=== PATIENT | female | born 1955 | race Hispanic/Latino ===

== ENCOUNTER 2019-03-07 15:35 | Emergency (ER) | payer BC, MEDICARE, OTHER ==
[2019-03-07 15:54] VITALS: BMI 18.5
--- NOTE | 2019-03-07 16:02 | ED PDOC ---
Arrival/HPI - General Chief Complaint: Psychiatric Evaluation Time Seen by Provider: 03/07/19 15:38 Historian: Patient - History of Present Illness Narrative History of Present Illness (Text): 16:59 64 y/o female with PMH of depression, anxiety, PTSD presents to the ED c/o feeling hopeless and depressed x 1 week. Pt ran out of her medications today. 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 Denies the ingestion of medication as a suicide attempt, states she was just trying to calm down. Admits to recent intermittent suicidal ideations, but denies them currently. States her friend called the ambulance because she was concerned for her mental health. Denies any physical complaint. Denies fever, chills, chest pain, SOB, abdominal pain, back pain, nausea, vomiting, palpitations, dizziness, cough, or any other associated complaints. Past Medical History - Provider Review Nursing Documentation Reviewed: Yes - Hematological/Oncological Hx Blood Transfusions: No Hx Blood Transfusion Reaction: No - Anesthesia Hx Anesthesia Reactions: No Hx Malignant Hyperthermia: No Family/Social History - Physician Review Nursing Documentation Reviewed: Yes Family/Social History: No Known Family HX Allergies/Home Meds Allergies/Adverse Reactions: Allergies No Known Allergies Allergy (Verified 01/23/14 07:06) Home Medications: Home Meds Medication Instructions Recorded Confirmed Duloxetine HCl [Cymbalta] 60 mg PO DAILY 01/23/14 03/07/19 Review of Systems - Review of Systems Constitutional: Normal. absent: Fatigue Eyes: Normal. absent: Photophobia ENT: Normal. absent: Sore Throat, Sinus Congestion Respiratory: Normal. absent: SOB, Cough Cardiovascular: Normal. absent: Chest Pain, Palpitations, Syncope Gastrointestinal: Normal. absent: Abdominal Pain, Nausea, Vomiting Genitourinary Female: Normal. absent: Dysuria, Frequency Musculoskeletal: Normal. absent: Back Pain, Neck Pain Skin: Normal. absent: Rash Neurological: Normal. absent: Headache, Dizziness Psychiatric: Anxiety, Depression, Suicidal Ideation Physical Exam Vital Signs Reviewed: Yes Temperature: Afebrile Blood Pressure: Normal Pulse: Regular Respiratory Rate: Normal Appearance: Positive for: Non-Toxic, Unkept Pain Distress: None Mental Status: Positive for: Alert and Oriented X 3 - Systems Exam Head: Present: Atraumatic, Normocephalic Pupils: Present: PERRL Extroacular Muscles: Present: EOMI Conjunctiva: Present: Normal Mouth: Present: Moist Mucous Membranes Neck: Present: Normal Range of Motion Respiratory/Chest: Present: Clear to Auscultation, Good Air Exchange. No: Respiratory Distress, Accessory Muscle Use Cardiovascular: Present: Regular Rate and Rhythm, Normal S1, S2, Peripheal Pulses Present Abdomen: Present: Normal Bowel Sounds. No: Tenderness Back: Present: Normal Inspection Upper Extremity: Present: Normal Inspection, Normal ROM Lower Extremity: Present: Normal Inspection, Normal ROM Neurological: Present: GCS=15, Speech Normal, Motor Func Grossly Intact, Normal Sensory Function, Gait Normal Skin: Present: Warm, Dry, Normal Color. No: Rashes Psychiatric: Present: Alert, Oriented x 3, Anxious, Suicidal Ideation. No: Homicidal Ideation, Hallucinations Medical Decision Making ED Course and Treatment: Initial Plan: * Labs * UA, UDS * EKG * CXR * PES Eval * 1:1 16:54 Patient agitated, repeatedly asking if she may leave to have a cigarette. Pt offered nicotine patch, refused. Pt threatening to elope from ED, security notified. Pt also on continuous 1:1. Pending PES evaluation. PES called 5 times since 16:06pm per secretary receptionistKizzy. 17:05 PES ETA 17:30 17:31 Bloodwork reviewed, significant for low sodium and chloride. Pt is asymptomatic. Will treat with IVF. UA shows UTI. Patient refusing IV line and all medications. Tylenol level and ingestion of benzodiazepines discussed with ED attending Dr. Nic yun who recommends observation and re-draw at 4 hours from ingestion, approx 18:30. Unable to reach PES 18:08 PES states they are currently en route to hospital 19:10 Tylenol level has decreased from 27 to 11 on re-draw. Patient cleared for psychiatric discharge per Dr. Teresa, psychiatrist information systems security officer. However, patient is not medically cleared secondary to hyponatremia and need for observation secondary to excessive benzodiazepine ingestion. Pt will sign out AMA. Will treat for UTI outpatient. The patient is choosing to leave against medical advice. I have personally explained to the patient that choosing to do so may result in permanent bodily harm, disability, or . I have discussed at great length that without further evaluation and monitoring there may be unforeseen circumstances and/or deterioration causing permanent bodily harm or as a result of their choice. The patient is alert, oriented, and shows the mental capacity to make clear decisions regarding the patients health care at this time. The patient continues to wish to leave against medical advice. In light of the patients decision to leave against medical advice, follow-up has been arranged and the patient is aware of the importance to following up as instructed. The patient has been advised that they should return to the emergency room immediately if they change their mind at any time, or if their c ondition begins to change or worsen in any way. - Lab Interpretations Lab Results: 03/07/19 16:18 03/07/19 16:18 Lab Results 03/07/19 18:30: Acetaminophen 11.0 03/07/19 16:18: Alcohol, Quantitative < 10 03/07/19 16:18: Salicylates < 1 L, Acetaminophen 27.0 H 03/07/19 16:18: Urine Opiates Screen Negative, Urine Methadone Screen Negative, Ur Barbiturates Screen Negative, Ur Phencyclidine Scrn Negative, Ur Amphetamines Screen Negative, U Benzodiazepines Scrn Positive H, U Oth Cocaine Metabols Negative, U Cannabinoids Screen Negative 03/07/19 16:18: Sodium 127 L, Potassium 4.6, Chloride 95 L, Carbon Dioxide 25, Anion Gap 12, BUN 10, Creatinine 0.7, Est GFR ( Amer) > 60, Est GFR (Non- Af Amer) > 60, Random Glucose 95, Calcium 8.7, Total Bilirubin 0.7, AST 32, ALT 15, Alkaline Phosphatase 66, Total Protein 6.9, Albumin 4.3, Globulin 2.6, Albumin/Globulin Ratio 1.6 03/07/19 16:18: Urine Color yellow, Urine Appearance Clear, Urine pH 6.0, Ur Specific [place] 1.015, Urine Protein Negative, Urine Glucose (UA) Negative, Urine Ketones Negative, Urine Blood Small H, Urine Nitrate Positive H, Urine Bilirubin Negative, Urine Urobilinogen 0.2, Ur Leukocyte Esterase Trace H, Urine RBC 5 - 10 H, Urine WBC 2 - 5, Ur Epithelial Cells 3 - 4, Urine Bacteria Mod, Urine HCG, Qual Negative 03/07/19 16:18: WBC 6.1, RBC 3.99, Hgb 12.3, Hct 36.8, MCV 92.2, MCH 30.8, MCHC 33.4, RDW 12.8, Plt Count 354, MPV 9.3, Neut % (Auto) 55.7, Lymph % (Auto) 32.8, Towns % (Auto) 10.2 H, Eos % (Auto) 0.8 L, Baso % (Auto) 0.5, Lymph # (Auto) 2.0, Towns # (Auto) 0.6, Eos # (Auto) 0.1, Baso # (Auto) 0.03, Absolute Neuts (auto) 3.38 I have reviewed the lab results: Yes - RAD Interpretation Narrative RAD Interpretations (Text): 03/07/19 18:51 CXR: FINDINGS: LUNGS: No active pulmonary disease. PLEURA: No significant pleural effusion identified, no pneumothorax apparent. CARDIOVASCULAR: Aortic atherosclerotic calcifications. Cardiomediastinal silhouette within normal limits. OSSEOUS STRUCTURES: Spinal degenerative changes. VISUALIZED UPPER ABDOMEN: Normal. OTHER FINDINGS: None. IMPRESSION: No active disease. Journeyman Electrician: Radiologist Disposition/Present on Arrival - Present on Arrival Any Indicators Present on Arrival: No History of DVT/PE: No History of Uncontrolled Diabetes: No Urinary Catheter: No History of Decub. Ulcer: No - Disposition Have Diagnosis and Disposition been Completed?: No Diagnosis: UTI (urinary tract infection), Depression, Hyponatremia, Left against medical advice Disposition: AGAINST MEDICAL ADVICE Disposition Time: 19:25 Patient Plan: Discharge Patient Problems: Current Active Problems Problem Status Onset Depression Acute Hyponatremia Acute Condition: GUARDED Discharge Instructions (ExitCare): Urinary Tract Infections in Adults, Hyponatremia (DC) Additional Instructions: Keflex every 12 hours for 7 days Increase salt in diet Refrain from excessive tylenol use Followup with primary doctor tomorrow Followup with psychiatrist tomorrow Return to ER with any new/worsening symptoms or if you wish to be re-evaluated Forms: [employer] (Yi)
[2019-03-07 16:45] LABS: BASO # 0.03 K/mm3 (0.0-2.0); BASO % 0.5 % (0.0-3.0); EOS # 0.1 (0.0-0.7); EOS % 0.8 % (1.5-5.0); HEMOGLOBIN 12.3 g/dL (12.0-16.0); LYMPH % 32.8 % (22.0-35.0); MEAN CELL VOLUME 92.2 fl (80.0-105.0); MEAN CORPUSCULAR HEMOGLOBIN 30.8 pg (25.0-35.0); MEAN CORPUSCULAR HGB CONC 33.4 g/dl (31.0-37.0); MEAN PLATELET VOLUME 9.3 fl (7.0-11.0); MONO # 0.6 (0.1-0.6); MONO % 10.2 % (1.0-6.0); RBC 3.99 10^6/uL (3.5-6.1); RED CELL DISTRIBUTION WIDTH 12.8 % (11.5-14.5); URINE BILIRUBIN NEGATIVE (NEGATIVE); URINE BLOOD SMALL (NEGATIVE); URINE GLUCOSE (UA) NEGATIVE (NEGATIVE); URINE LEUKOCYTE ESTERASE TRACE Leu/uL (NEGATIVE); URINE PROTEIN NEGATIVE mg/dL (<30 mg/dL); URINE UROBILINOGEN 0.2 E.U./dL (<1 E.U./dL); WHITE BLOOD COUNT 6.1 10^3/uL (4.5-11.0)
[2019-03-07 16:54] VITALS: RESP 18; TEMP 98.6
[2019-03-07 17:01] LABS: ALB/GLOB RATIO 1.6 (1.1-1.8); ALBUMIN 4.3 g/dL (3.0-4.8); ALT/SGPT 15 U/L (7-56); AST/SGOT 32 U/L (14-36); BLOOD UREA NITROGEN 10 mg/dL (7-21); CALCIUM 8.7 mg/dL (8.4-10.5); GFR NON-AFRICAN AMERICAN > 60
[2019-03-07 17:02] LABS: SALICYLATE < 1 mg/dL (2.0-20.0)
[2019-03-07 17:06] LABS: URINE APPEARANCE CLEAR (CLEAR)
[2019-03-07 17:07] LABS: HCG,QUALITATIVE URINE NEGATIVE (NEGATIVE)
[2019-03-07 17:09] LABS: URINE BACTERIA MOD /hpf
[2019-03-07 17:14] LABS: BARBITURATES, UR NEGATIVE (NEGATIVE); BENZODIAZEPINES, UR POSITIVE (NEGATIVE); OPIATES, UR NEGATIVE (NEGATIVE); PHENCYCLIDINE, UR NEGATIVE (NEGATIVE)
--- NOTE | 2019-03-07 17:36 | RAD ---
Date of service: 03/07/2019 HISTORY: PES COMPARISON: None available TECHNIQUE: 1 view obtained. FINDINGS: LUNGS: No active pulmonary disease. PLEURA: No significant pleural effusion identified, no pneumothorax apparent. CARDIOVASCULAR: Aortic atherosclerotic calcifications. Cardiomediastinal silhouette within normal limits. OSSEOUS STRUCTURES: Spinal degenerative changes. VISUALIZED UPPER ABDOMEN: Normal. OTHER FINDINGS: None. IMPRESSION: No active disease.
[2019-03-07 18:31] VITALS: BP 129/79; PULSE 79; O2SAT 98
--- NOTE | 2019-03-08 11:00 | CARD ---
APPROVED REPORT Date of service: 03/07/2019 EKG Measurement Heart [id number] <Conclusion> Normal sinus rhythm Normal ECG
== END 2019-03-07 19:33 | disposition left against medical advice (07) ==
LOC: ED 15:35
DX: F32.9 Major depressive disorder, single episode, unspecified (principal); N39.0 Urinary tract infection, site not specified; E87.1 Hypo-osmolality and hyponatremia; F43.10 Post-traumatic stress disorder, unspecified; F41.9 Anxiety disorder, unspecified
CPT/HCPCS: 71045; 80053; 81001; 84703; 85025; 87086; 87181; 90791; 93005; 99285; G0480

== ENCOUNTER 2019-03-09 19:43 | Observation (INO) | payer OTHER ==
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
[2019-03-09 20:36] LABS: HEMOGLOBIN 12.5 g/dL (12.0-16.0); MEAN CELL VOLUME 92.5 fl (80.0-105.0); MEAN CORPUSCULAR HEMOGLOBIN 31.3 pg (25.0-35.0); MEAN CORPUSCULAR HGB CONC 33.8 g/dl (31.0-37.0); MEAN PLATELET VOLUME 8.9 fl (7.0-11.0); WHITE BLOOD COUNT 6.8 10^3/uL (4.5-11.0)
[2019-03-09 20:56] LABS: ALB/GLOB RATIO 1.6 (1.1-1.8); ALBUMIN 4.1 g/dL (3.0-4.8); ALT/SGPT 10 U/L (7-56); AST/SGOT 30 U/L (14-36); BLOOD UREA NITROGEN 9 mg/dL (7-21); GFR NON-AFRICAN AMERICAN > 60
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
[2019-03-09] MEDS ORDERED: Sodium Chloride 0.9% 1,000 ML IV SCH (22:00)
[2019-03-10 00:03] LABS: PHENCYCLIDINE, UR NEGATIVE (NEGATIVE)
[2019-03-10] MEDS ORDERED: DEXTROSE 5% IVPB ONE ×3 (00:12→05:12)
[2019-03-10] MEDS ORDERED: ACETYLCYSTEINE IVPB ONE ×3 (00:12→05:12)
[2019-03-10] MEDS ORDERED: WATER IVPB ONE ×3 (00:12→05:12)
[2019-03-10 00:23] LABS: BARBITURATES, UR NEGATIVE (NEGATIVE); BENZODIAZEPINES, UR POSITIVE (NEGATIVE); OPIATES, UR NEGATIVE (NEGATIVE)
[2019-03-10 02:33] VITALS: BMI 18.1
[2019-03-10 06:47] LABS: HEMOGLOBIN 12.6 g/dL (12.0-16.0); MEAN CELL VOLUME 92.4 fl (80.0-105.0); MEAN CORPUSCULAR HEMOGLOBIN 30.9 pg (25.0-35.0); MEAN CORPUSCULAR HGB CONC 33.4 g/dl (31.0-37.0); MEAN PLATELET VOLUME 9.1 fl (7.0-11.0); RBC 4.08 10^6/uL (3.5-6.1)
[2019-03-10 07:25] LABS: ALB/GLOB RATIO 1.6 (1.1-1.8); ALT/SGPT 15 U/L (7-56); AST/SGOT 24 U/L (14-36); BLOOD UREA NITROGEN 7 mg/dL (7-21); CALCIUM 8.5 mg/dL (8.4-10.5); GFR NON-AFRICAN AMERICAN > 60
--- NOTE | 2019-03-10 11:24 | CARD ---
APPROVED REPORT Date of service: 03/09/2019 EKG Measurement Heart [id number] <Conclusion> Normal sinus rhythm Normal ECG
[2019-03-10 22:33] VITALS: RESP 18
[2019-03-10 23:29] LABS: ALB/GLOB RATIO 1.6 (1.1-1.8); ALBUMIN 3.8 g/dL (3.0-4.8); ALT/SGPT 13 U/L (7-56); AST/SGOT 18 U/L (14-36); BLOOD UREA NITROGEN 5 mg/dL (7-21); CALCIUM 8.8 mg/dL (8.4-10.5); GFR NON-AFRICAN AMERICAN > 60
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
[2019-03-11 07:19] LABS: ALB/GLOB RATIO 1.5 (1.1-1.8); ALBUMIN 3.8 g/dL (3.0-4.8); ALT/SGPT 17 U/L (7-56); AST/SGOT 22 U/L (14-36); BLOOD UREA NITROGEN 4 mg/dL (7-21); CALCIUM 8.8 mg/dL (8.4-10.5); GFR NON-AFRICAN AMERICAN > 60
[2019-03-11 07:57] VITALS: BP 132/73; PULSE 77; TEMP 97.8; O2SAT 96
--- NOTE | 2019-03-11 12:11 | CP.PCM.DIS ---
<Hugo Jackson - Last Filed: 03/11/19 15:27> Provider - Provider Date of Admission: 03/09/19 21:49 Attending physician: Philippe Vogel MD Consults: 03/09/19 22:09 Physician Consult Routine Comment: Consulting Provider: Surekha Mathur Consulting Physician: Surekha Mathur Reason for Consult: depression and suicidal ideation Time Spent in preparation of Discharge (in minutes): 35 Hospital Course - Lab Results Lab Results: Most Recent Lab Values WBC 5.0 10^3/uL (4.5-11.0) D 03/10/19 06:30 RBC 4.08 10^6/uL (3.5-6.1) 03/10/19 06:30 Hgb 12.6 g/dL (12.0-16.0) 03/10/19 06:30 Hct 37.7 % (36.0-48.0) 03/10/19 06:30 MCV 92.4 fl (80.0-105.0) 03/10/19 06:30 MCH 30.9 pg (25.0-35.0) 03/10/19 06:30 MCHC 33.4 g/dl (31.0-37.0) 03/10/19 06:30 RDW 13.0 % (11.5-14.5) 03/10/19 06:30 Plt Count 340 10^3/uL (120.0-450.0) 03/10/19 06:30 MPV 9.1 fl (7.0-11.0) 03/10/19 06:30 Sodium 132 mmol/L (132-148) 03/11/19 06:20 Potassium 3.9 mmol/L (3.6-5.0) 03/11/19 06:20 Chloride 101 mmol/L (98-107) 03/11/19 06:20 Carbon Dioxide 26 mmol/L (21-33) 03/11/19 06:20 Anion Gap 9 (10-20) L 03/11/19 06:20 BUN 4 mg/dL (7-21) L 03/11/19 06:20 Creatinine 0.4 mg/dl (0.7-1.2) L 03/11/19 06:20 Est GFR ( Amer) > 60 03/11/19 06:20 Est GFR (Non-Af Amer) > 60 03/11/19 06:20 Random Glucose 93 mg/dL (70-110) 03/11/19 06:20 Serum Osmolality 262 mosm/kg (272-300) L 03/10/19 06:30 Calcium 8.8 mg/dL (8.4-10.5) 03/11/19 06:20 Total Bilirubin 0.5 mg/dL (0.2-1.3) 03/11/19 06:20 AST 22 U/L (14-36) 03/11/19 06:20 ALT 17 U/L (7-56) 03/11/19 06:20 Alkaline Phosphatase 58 U/L (38-126) 03/11/19 06:20 Total Protein 6.2 g/dL (5.8-8.3) 03/11/19 06:20 Albumin 3.8 g/dL (3.0-4.8) 03/11/19 06:20 Globulin 2.4 gm/dL 03/11/19 06:20 Albumin/Globulin Ratio 1.5 (1.1-1.8) 03/11/19 06:20 TSH 3rd Generation 3.25 mIU/mL (0.46-4.68) 03/10/19 06:30 Urine Osmolality 346 mosm/kg (300-1000) 03/09/19 23:23 Ur Random Sodium 23 meq/L 03/09/19 23:23 Salicylates < 1 mg/dL (2.0-20.0) L 03/09/19 20:30 Urine Opiates Screen Negative (NEGATIVE) 03/09/19 23:23 Urine Methadone Screen Negative (NEGATIVE) 03/09/19 23:23 Acetaminophen < 10.0 ug/ml (10.0-20.0) L 03/10/19 21:50 Ur Barbiturates Screen Negative (NEGATIVE) 03/09/19 23:23 Ur Phencyclidine Scrn Negative (NEGATIVE) 03/09/19 23:23 Ur Amphetamines Screen Negative (NEGATIVE) 03/09/19 23:23 U Benzodiazepines Scrn Positive (NEGATIVE) H 03/09/19 23:23 U Oth Cocaine Metabols Negative (NEGATIVE) 03/09/19 23:23 U Cannabinoids Screen Negative (NEGATIVE) 03/09/19 23:23 Alcohol, Quantitative < 10 mg/dL (0-10) 03/09/19 20:30 - Hospital Course Hospital Course: 64 year old female, whose past medical history includes Depression, Anxiety, PTS H, Claustrophobia who presented to the ED with depression. USD positive for tylenol level of 64 and positive benzodiazepine level. LFT level normal. Poison Control contacted and recommended to adminster NAC therapy. 1:1 observation initiated. Patient stated that she ingestion tylenol to calm her down as she ran out of xanax supply which she misuses trying to calm herself down from anxiety and depression. Patient denied suicidal/homicidal ideation. She only felt alone and depressed but she does not want to end her life. Patient was evaluated by psychiatry with no need for inpatient psych admission. Tylenol level came down, no LFT abnormalities, no EKG changes. Patient found to have hyponatremia on admission likely due to her home med cymbalta and excess water ingestion. Patient was asymptomatic. IVF NS given with water restriction orders and Na level corrected. Today patient felt less anxious, no suicidal thoughts, hemodynamically stable and clinically optimized for discharge home today. Additional discharge instructions as below. Discharge Exam - Head Exam Head Exam: ATRAUMATIC, NORMAL INSPECTION, NORMOCEPHALIC - Eye Exam Eye Exam: EOMI, Normal appearance Pupil Exam: NORMAL ACCOMODATION, PERRL - ENT Exam ENT Exam: Mucous Membranes Moist - Neck Exam Neck exam: Full Rom - Respiratory Exam Respiratory Exam: Clear to PA & Lateral, NORMAL BREATHING PATTERN - Cardiovascular Exam Cardiovascular Exam: REGULAR RHYTHM, +S1, +S2 - GI/Abdominal Exam GI & Abdominal Exam: Normal Bowel Sounds, Soft - Extremities Exam Extremities exam: full ROM, normal inspection - Back Exam Back exam: FULL ROM - Neurological Exam Neurological exam: Alert, CN II-XII Intact, Normal Gait, Oriented x3, Reflexes Normal - Psychiatric Exam Psychiatric exam: Normal Affect, Normal Mood - Skin Skin Exam: Dry, Intact, Normal Color, Warm Discharge Plan - Discharge Medications Prescriptions: Alprazolam [Xanax] 0.5 mg PO TID PRN #21 tab PRN Reason: Anxiety - Follow Up Plan Condition: STABLE Disposition: HOME/ ROUTINE Instructions: Acetaminophen Poisoning (DC), Hyponatremia (DC), Depression (DC) Additional Instructions: Please follow up with your PCP Dr Merino within 2-3 days of discharge Please take Xanax 0.5 mg as needed for anxiety. Prescription of 5 days given. Repeat urinalysis at your doctor's office as it was positive for bacteria but since you don't have symptoms, no antibiotics required. Check you Tylenol level in 1 week with your primary care provider. continue to take your home meds as prescribed by your doctor. Please return to the emergency department if symptoms recur. Referrals: Hai Herron MD [Staff Provider] - Marcin Heart MD [Non-Staff] - Coy Merino DO [Medical Doctor] - <Philippe Vogel - Last Filed: 03/11/19 18:01> Provider - Provider Date of Admission: 03/09/19 21:49 Attending physician: Philippe Vogel MD Consults: 03/09/19 22:09 Physician Consult Routine Comment: Consulting Provider: Surekha Mathur Consulting Physician: Surekha Mathur Reason for Consult: depression and suicidal ideation Hospital Course - Lab Results Lab Results: Most Recent Lab Values WBC 5.0 10^3/uL (4.5-11.0) D 03/10/19 06:30 RBC 4.08 10^6/uL (3.5-6.1) 03/10/19 06:30 Hgb 12.6 g/dL (12.0-16.0) 03/10/19 06:30 Hct 37.7 % (36.0-48.0) 03/10/19 06:30 MCV 92.4 fl (80.0-105.0) 03/10/19 06:30 MCH 30.9 pg (25.0-35.0) 03/10/19 06:30 MCHC 33.4 g/dl (31.0-37.0) 03/10/19 06:30 RDW 13.0 % (11.5-14.5) 03/10/19 06:30 Plt Count 340 10^3/uL (120.0-450.0) 03/10/19 06:30 MPV 9.1 fl (7.0-11.0) 03/10/19 06:30 Sodium 132 mmol/L (132-148) 03/11/19 06:20 Potassium 3.9 mmol/L (3.6-5.0) 03/11/19 06:20 Chloride 101 mmol/L (98-107) 03/11/19 06:20 Carbon Dioxide 26 mmol/L (21-33) 03/11/19 06:20 Anion Gap 9 (10-20) L 03/11/19 06:20 BUN 4 mg/dL (7-21) L 03/11/19 06:20 Creatinine 0.4 mg/dl (0.7-1.2) L 03/11/19 06:20 Est GFR ( Amer) > 60 03/11/19 06:20 Est GFR (Non-Af Amer) > 60 03/11/19 06:20 Random Glucose 93 mg/dL (70-110) 03/11/19 06:20 Serum Osmolality 262 mosm/kg (272-300) L 03/10/19 06:30 Calcium 8.8 mg/dL (8.4-10.5) 03/11/19 06:20 Total Bilirubin 0.5 mg/dL (0.2-1.3) 03/11/19 06:20 AST 22 U/L (14-36) 03/11/19 06:20 ALT 17 U/L (7-56) 03/11/19 06:20 Alkaline Phosphatase 58 U/L (38-126) 03/11/19 06:20 Total Protein 6.2 g/dL (5.8-8.3) 03/11/19 06:20 Albumin 3.8 g/dL (3.0-4.8) 03/11/19 06:20 Globulin 2.4 gm/dL 03/11/19 06:20 Albumin/Globulin Ratio 1.5 (1.1-1.8) 03/11/19 06:20 TSH 3rd Generation 3.25 mIU/mL (0.46-4.68) 03/10/19 06:30 Urine Osmolality 346 mosm/kg (300-1000) 03/09/19 23:23 Ur Random Sodium 23 meq/L 03/09/19 23:23 Salicylates < 1 mg/dL (2.0-20.0) L 03/09/19 20:30 Urine Opiates Screen Negative (NEGATIVE) 03/09/19 23:23 Urine Methadone Screen Negative (NEGATIVE) 03/09/19 23:23 Acetaminophen < 10.0 ug/ml (10.0-20.0) L 03/10/19 21:50 Ur Barbiturates Screen Negative (NEGATIVE) 03/09/19 23:23 Ur Phencyclidine Scrn Negative (NEGATIVE) 03/09/19 23:23 Ur Amphetamines Screen Negative (NEGATIVE) 03/09/19 23:23 U Benzodiazepines Scrn Positive (NEGATIVE) H 03/09/19 23:23 U Oth Cocaine Metabols Negative (NEGATIVE) 03/09/19 23:23 U Cannabinoids Screen Negative (NEGATIVE) 03/09/19 23:23 Alcohol, Quantitative < 10 mg/dL (0-10) 03/09/19 20:30 Attending/Attestation - Attestation I have personally seen and examined this patient.: Yes I have fully participated in the care of the patient.: Yes I have reviewed all pertinent clinical information, including history, physical exam and plan: Yes Notes (Text): 03/11/19 17:58 Attending note; Patient seen and examined with resident. Patient is alert and awake. Ambulating in the hallway. Tolerating diet well. Denies any nausea, vomiting. Patient is a 64 year old female with past medical history of Depression, Anxiety, PTSD, Claustrophobia who presented to the ED with depression. USD positive for tylenol level of 64 and positive benzodiazepine level. 1. Tylenol toxicity; patient was taking Tylenol PM for insomnia. Initial Tylenol level was 64. Treated with N-acetylcysteine. Currently with negative Tylenol level and normal LFT. Poison control was informed. Patient is tolerating diet well. Denies any nausea, vomiting. Advised to avoid Tylenol. Side effects explained in detail. 2. Xanax overuse or abuse; patient was seen by psychiatrist. We will give prescription for low-dose Xanax for 1 week. Patient wants to follow-up with Dr. Hendricks as outpatient. Patient is strongly advised to follow-up with psychiatrist as outpatient. Patient agreed with the above recommendations. Discharge home today.
--- NOTE | 2019-03-11 15:13 | CP.PCM.PCO ---
Physician Communication Note - Physician Communication Note Physician Communication Note: pt was discharged
== END 2019-03-11 14:00 | disposition home or self-care (01) ==
LOC: ED 19:43 → ERH 21:49 → 5RNO 22:50
PROVIDERS: ADMIT Internal Medicine; ATTEND Internal Medicine
DX: T39.1X2A Poisoning by 4-Aminophenol derivatives, intentional self-harm, initial encounter (principal); E87.1 Hypo-osmolality and hyponatremia; F32.9 Major depressive disorder, single episode, unspecified; R45.851 Suicidal ideations; F43.10 Post-traumatic stress disorder, unspecified; G47.00 Insomnia, unspecified; F17.210 Nicotine dependence, cigarettes, uncomplicated; F40.240 Claustrophobia; Z62.810 Personal history of physical and sexual abuse in childhood
CPT/HCPCS: 36415; 80053; 80320; 80324; 80329; 80345; 80346; 80349; 80353; 80358; 80361; 83930; 83935; 83992; 84300; 84443; 85027; 90791; 93005; 99284; G0378; J0132; J7030; J7060; J7070

== ENCOUNTER 2019-03-13 08:06 | Inpatient (IN) | payer MEDICARE, OTHER ==
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
[2019-03-13 09:14] LABS: BASO # 0.03 K/mm3 (0.0-2.0); BASO % 0.7 % (0.0-3.0); EOS # 0.1 (0.0-0.7); EOS % 2.4 % (1.5-5.0); HEMOGLOBIN 12.1 g/dL (12.0-16.0); LYMPH # 1.8 (1.2-3.4); LYMPH % 38.4 % (22.0-35.0); MEAN CELL VOLUME 92.4 fl (80.0-105.0); MEAN CORPUSCULAR HEMOGLOBIN 30.8 pg (25.0-35.0); MEAN CORPUSCULAR HGB CONC 33.3 g/dl (31.0-37.0); MEAN PLATELET VOLUME 9.1 fl (7.0-11.0); MONO # 0.4 (0.1-0.6); MONO % 8.3 % (1.0-6.0); RBC 3.93 10^6/uL (3.5-6.1); RED CELL DISTRIBUTION WIDTH 13.1 % (11.5-14.5); WHITE BLOOD COUNT 4.6 10^3/uL (4.5-11.0)
--- NOTE | 2019-03-13 09:27 | RAD ---
Date of service: 03/13/2019 HISTORY: psych COMPARISON: Chest radiograph dated 03/07/2019. TECHNIQUE: 1 view obtained. FINDINGS: LUNGS: No active pulmonary disease. PLEURA: No significant pleural effusion identified, no pneumothorax apparent. CARDIOVASCULAR: Aortic atherosclerotic calcifications. Cardiomediastinal silhouette within normal limits. OSSEOUS STRUCTURES: Unchanged. VISUALIZED UPPER ABDOMEN: Normal. OTHER FINDINGS: None. IMPRESSION: No active disease.
[2019-03-13 09:32] LABS: SALICYLATE < 1 mg/dL (2.0-20.0)
[2019-03-13 09:39] LABS: ALB/GLOB RATIO 1.6 (1.1-1.8); ALBUMIN 3.9 g/dL (3.0-4.8); ALT/SGPT 8 U/L (7-56); AST/SGOT 22 U/L (14-36); BLOOD UREA NITROGEN 7 mg/dL (7-21); CALCIUM 8.8 mg/dL (8.4-10.5); GFR NON-AFRICAN AMERICAN > 60
[2019-03-13 10:01] LABS: URINE BILIRUBIN NEGATIVE (NEGATIVE); URINE BLOOD SMALL (NEGATIVE); URINE GLUCOSE (UA) NEGATIVE (NEGATIVE); URINE LEUKOCYTE ESTERASE SMALL Leu/uL (NEGATIVE); URINE PROTEIN NEGATIVE mg/dL (<30 mg/dL); URINE UROBILINOGEN 0.2 E.U./dL (<1 E.U./dL)
[2019-03-13] MEDS ORDERED: DEXTROSE 5% IVPB ONE ×3 (10:01→15:15)
[2019-03-13] MEDS ORDERED: ACETYLCYSTEINE IVPB ONE ×3 (10:01→15:15)
[2019-03-13] MEDS ORDERED: WATER IVPB ONE ×3 (10:01→15:15)
[2019-03-13 10:12] LABS: PHENCYCLIDINE, UR NEGATIVE (NEGATIVE)
[2019-03-13] MEDS ORDERED: Sodium Chloride 0.9% 1,000 ML IV SCH (10:15)
[2019-03-13 10:17] LABS: BARBITURATES, UR NEGATIVE (NEGATIVE); BENZODIAZEPINES, UR POSITIVE (NEGATIVE); OPIATES, UR NEGATIVE (NEGATIVE); URINE APPEARANCE SL CLOUDY (CLEAR); URINE BACTERIA LARGE /hpf; URINE COLOR YELLOW (YELLOW); URINE EPITHELIAL CELLS 0 - 2 /hpf (0-5); URINE RBC 0 - 2 /hpf (0-2)
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
[2019-03-13 11:52] VITALS: BMI 18.5
[2019-03-13] MEDS ORDERED: DiphenhydrAMINE 50 mg/ml Inj IVP ONE (17:17)
--- NOTE | 2019-03-13 19:19 | CARD ---
APPROVED REPORT Date of service: 03/13/2019 EKG Measurement Heart [id number] <Conclusion> Normal sinus rhythm Normal ECG
[2019-03-13] MEDS ORDERED: DiphenhydrAMINE 50 mg/ml Inj IVP STA (20:41)
[2019-03-13 22:53] LABS: ALB/GLOB RATIO 1.5 (1.1-1.8); ALBUMIN 3.8 g/dL (3.0-4.8); ALT/SGPT 19 U/L (7-56); AST/SGOT 15 U/L (14-36); BLOOD UREA NITROGEN 4 mg/dL (7-21); CALCIUM 8.8 mg/dL (8.4-10.5); GFR NON-AFRICAN AMERICAN > 60
[2019-03-14 06:14] LABS: BASO # 0.03 K/mm3 (0.0-2.0); BASO % 0.6 % (0.0-3.0); EOS # 0.1 (0.0-0.7); LYMPH # 1.6 (1.2-3.4); LYMPH % 33.1 % (22.0-35.0); MEAN CELL VOLUME 92.6 fl (80.0-105.0); MEAN CORPUSCULAR HEMOGLOBIN 30.5 pg (25.0-35.0); MEAN PLATELET VOLUME 8.9 fl (7.0-11.0); MONO # 0.6 (0.1-0.6); MONO % 12.4 % (1.0-6.0); RBC 3.93 10^6/uL (3.5-6.1); WHITE BLOOD COUNT 4.8 10^3/uL (4.5-11.0)
[2019-03-14 06:41] LABS: INR 1.17; PROTHROMBIN TIME 13.2 SECONDS (9.4-12.5)
[2019-03-14 07:14] LABS: ALB/GLOB RATIO 1.4 (1.1-1.8); ALBUMIN 3.6 g/dL (3.0-4.8); ALT/SGPT 13 U/L (7-56); AST/SGOT 20 U/L (14-36); BILIRUBIN,DIRECT 0.3 mg/dL (0.0-0.4); BLOOD UREA NITROGEN 3 mg/dL (7-21); CALCIUM 8.6 mg/dL (8.4-10.5); GFR NON-AFRICAN AMERICAN > 60
--- NOTE | 2019-03-14 08:27 | CP.PCM.PN ---
<SumeetBhupendra - Last Filed: 03/14/19 12:02> Subjective - Date & Time of Evaluation Date of Evaluation: 03/14/19 Time of Evaluation: 08:00 - Subjective Subjective: Progress Note for Dr. Espinoza Service Patient was seen and examined at bedside with 1:1 sitter for patient safety maintained. Patient is AAOx3 and would like to speak to psychiatry. She is still having difficulty sleeping, and expressed major depression with suicidal id eation. Patient denied fever, chills, shortness of breath chest pains, abdominal pains, nausea, vomiting, diarrhea, constipation, hematura. Objective - Vital Signs/Intake and Output Vital Signs (last 24 hours): Temp Pulse Resp BP Pulse Ox 97.6 F 63 20 132/65 99 03/13/19 16:40 03/14/19 06:00 03/13/19 16:40 03/13/19 16:40 03/13/19 16:40 - Medications Medications: Current Medications Alprazolam (Xanax) 1 mg PO TID PRN; Protocol PRN Reason: Anxiety Last Admin: 03/13/19 14:23 Dose: 1 mg Ciprofloxacin (Cipro) 250 mg PO Q12 DESI; Protocol Stop: 03/15/19 22:01 Last Admin: 03/13/19 21:32 Dose: 250 mg Nicotine (Nicoderm Cq) 1 patch TD DAILY DESI Last Admin: 03/13/19 13:54 Dose: 1 patch - Labs Labs: 03/14/19 05:30 03/14/19 05:30 PT 13.2 SECONDS (9.4-12.5) H 03/14/19 05:30 INR 1.17 03/14/19 05:30 - Constitutional Appears: No Acute Distress - Head Exam Head Exam: ATRAUMATIC, NORMAL INSPECTION, NORMOCEPHALIC - Eye Exam Eye Exam: EOMI, Normal appearance, PERRL Pupil Exam: NORMAL ACCOMODATION, PERRL - ENT Exam ENT Exam: Mucous Membranes Moist, Normal Exam - Neck Exam Neck Exam: Full ROM, Normal Inspection. absent: Lymphadenopathy - Respiratory Exam Respiratory Exam: Clear to Ausculation Bilateral, NORMAL BREATHING PATTERN - Cardiovascular Exam Cardiovascular Exam: REGULAR RHYTHM, +S1, +S2. absent: Murmur - GI/Abdominal Exam GI & Abdominal Exam: Soft, Normal Bowel Sounds. absent: Tenderness - Neurological Exam Neurological Exam: Alert, Awake, CN II-XII Intact, Normal Gait, Oriented x3 - Psychiatric Exam Psychiatric exam: Normal Affect, Normal Mood - Skin Skin Exam: Dry, Intact, Normal Color, Warm Assessment and Plan - Assessment and Plan (Free Text) Assessment: 64 F with a PMHx of PTSD, Bipolar disorder, anxiety and depression admitted with suicidal ideation with tylenol OD. Suicidal Ideation 1:1 sitter maintained for patient safety Psychiatry consulted, appreciate recommendations Tylenol overdose Poison Control notified, comppleted NAC therapy LFTS wnl Repeat levels <10 Anxiety Xanax 1mg TID PRN Psych reccs pending utox benzo + Hyponatremia fluid restriction 1L Na wnl on repeat CMP UTI Cipro 250 mg PO q12h day 2 of 3 Tobacco abuse nicotine patch offered tobacco cessation encouraged and counselled DVT ppx scd <Gabriel Espinoza - Last Filed: 03/14/19 13:29> Objective - Vital Signs/Intake and Output Vital Signs (last 24 hours): Temp Pulse Resp BP Pulse Ox 97.8 F 72 18 126/77 98 03/14/19 08:35 03/14/19 10:00 03/14/19 08:35 03/14/19 08:35 03/14/19 08:35 - Medications Medications: Current Medications Alprazolam (Xanax) 1 mg PO TID PRN; Protocol PRN Reason: Anxiety Last Admin: 03/14/19 10:17 Dose: 1 mg Ciprofloxacin (Cipro) 250 mg PO Q12 DESI; Protocol Stop: 03/15/19 22:01 Last Admin: 03/14/19 10:17 Dose: 250 mg Nicotine (Nicoderm Cq) 1 patch TD DAILY DESI Last Admin: 03/14/19 10:18 Dose: Not Given - Labs Labs: 03/14/19 05:30 03/14/19 05:30 PT 13.2 SECONDS (9.4-12.5) H 03/14/19 05:30 INR 1.17 03/14/19 05:30 Attending/Attestation - Attestation I have personally seen and examined this patient.: Yes I have fully participated in the care of the patient.: Yes I have reviewed all pertinent clinical information, including history, physical exam and plan: Yes Notes (Text): 03/14/19 13:27 64 year old female with past medical history of anxiety and depression who presents with complaint of anxiety and depression with SI with overdose of tylenol. Initial tylenol level was 28. UTox positive for benzodiazepines. Poison control was notified and patient started on NAC protocol. LFTs are WNL and tylenol level has trended down. This morning patient still reports depression and anxiety. Continue with 1:1. Continue with xanax prn. Awaiting psychiatry evaluation for likely inpatient psychiatric admission. Hyponatremia has resolved. Resume cymbalta if okay with psychiatry. Continue with cipro for E Coli UTI. Gabriel Espinoza MD Hospitalist.
[2019-03-14 08:36] VITALS: BP 126/77; RESP 18; TEMP 97.8; O2SAT 98
[2019-03-14 13:06] VITALS: PULSE 72
--- NOTE | 2019-03-14 15:00 | CP.PCM.DIS ---
<Bhupendra Fay - Last Filed: 03/14/19 14:57> Provider - Provider Date of Admission: 03/13/19 10:09 Attending physician: Gabriel Espinoza MD Primary care physician: Coy Merino DO Consults: 03/14/19 10:12 Physician Consult Routine Comment: Consulting Provider: Surekha Mathur Consulting Physician: Surekha Mathur Reason for Consult: SI Time Spent in preparation of Discharge (in minutes): 45 Hospital Course - Lab Results Lab Results: Micro Results 03/13/19 09:43 Urine,Clean Catch Urine Culture - Preliminary Gram Negative Glen Most Recent Lab Values WBC 4.8 10^3/uL (4.5-11.0) 03/14/19 05:30 RBC 3.93 10^6/uL (3.5-6.1) 03/14/19 05:30 Hgb 12.0 g/dL (12.0-16.0) 03/14/19 05:30 Hct 36.4 % (36.0-48.0) 03/14/19 05:30 MCV 92.6 fl (80.0-105.0) 03/14/19 05:30 MCH 30.5 pg (25.0-35.0) 03/14/19 05:30 MCHC 33.0 g/dl (31.0-37.0) 03/14/19 05:30 RDW 13.0 % (11.5-14.5) 03/14/19 05:30 Plt Count 298 10^3/uL (120.0-450.0) 03/14/19 05:30 MPV 8.9 fl (7.0-11.0) 03/14/19 05:30 Neut % (Auto) 52.9 % (50.0-68.0) 03/14/19 05:30 Lymph % (Auto) 33.1 % (22.0-35.0) 03/14/19 05:30 Swain % (Auto) 12.4 % (1.0-6.0) H 03/14/19 05:30 Eos % (Auto) 1.0 % (1.5-5.0) L 03/14/19 05:30 Baso % (Auto) 0.6 % (0.0-3.0) 03/14/19 05:30 Lymph # (Auto) 1.6 (1.2-3.4) 03/14/19 05:30 Swain # (Auto) 0.6 (0.1-0.6) 03/14/19 05:30 Eos # (Auto) 0.1 (0.0-0.7) 03/14/19 05:30 Baso # (Auto) 0.03 K/mm3 (0.0-2.0) 03/14/19 05:30 Absolute Neuts (auto) 2.52 (1.4-6.5) 03/14/19 05:30 PT 13.2 SECONDS (9.4-12.5) H 03/14/19 05:30 INR 1.17 03/14/19 05:30 Sodium 136 mmol/L (132-148) 03/14/19 05:30 Potassium 4.2 mmol/L (3.6-5.0) 03/14/19 05:30 Chloride 106 mmol/L (98-107) 03/14/19 05:30 Carbon Dioxide 25 mmol/L (21-33) 03/14/19 05:30 Anion Gap 9 (10-20) L 03/14/19 05:30 BUN 3 mg/dL (7-21) L 03/14/19 05:30 Creatinine 0.4 mg/dl (0.7-1.2) L 03/14/19 05:30 Est GFR ( Amer) > 60 03/14/19 05:30 Est GFR (Non-Af Amer) > 60 03/14/19 05:30 Random Glucose 93 mg/dL (70-110) 03/14/19 05:30 Calcium 8.6 mg/dL (8.4-10.5) 03/14/19 05:30 Magnesium 1.9 mg/dL (1.7-2.2) 03/14/19 05:30 Total Bilirubin 0.5 mg/dL (0.2-1.3) 03/14/19 05:30 Direct Bilirubin 0.3 mg/dL (0.0-0.4) 03/14/19 05:30 AST 20 U/L (14-36) 03/14/19 05:30 ALT 13 U/L (7-56) 03/14/19 05:30 Alkaline Phosphatase 51 U/L (38-126) 03/14/19 05:30 Total Creatine Kinase 35 U/L (35-230) 03/13/19 08:34 Total Protein 6.1 g/dL (5.8-8.3) 03/14/19 05:30 Albumin 3.6 g/dL (3.0-4.8) 03/14/19 05:30 Globulin 2.5 gm/dL 03/14/19 05:30 Albumin/Globulin Ratio 1.4 (1.1-1.8) 03/14/19 05:30 Urine Color Yellow (YELLOW) 03/13/19 09:40 Urine Appearance Sl cloudy (CLEAR) 03/13/19 09:40 Urine pH 6.0 (4.7-8.0) 03/13/19 09:40 Ur Specific [place] 1.020 (1.005-1.035) 03/13/19 09:40 Urine Protein Negative mg/dL (<30 mg/dL) 03/13/19 09:40 Urine Glucose (UA) Negative mg/dL (NEGATIVE) 03/13/19 09:40 Urine Ketones Negative mg/dL (NEGATIVE) 03/13/19 09:40 Urine Blood Small (NEGATIVE) H 03/13/19 09:40 Urine Nitrate Positive (NEGATIVE) H 03/13/19 09:40 Urine Bilirubin Negative (NEGATIVE) 03/13/19 09:40 Urine Urobilinogen 0.2 E.U./dL (<1 E.U./dL) 03/13/19 09:40 Ur Leukocyte Esterase Small Leida/uL (NEGATIVE) H 03/13/19 09:40 Urine RBC 0 - 2 /hpf (0-2) 03/13/19 09:40 Urine WBC 2 - 5 /hpf (0-6) 03/13/19 09:40 Ur Epithelial Cells 0 - 2 /hpf (0-5) 03/13/19 09:40 Urine Bacteria Large /hpf (NONE) 03/13/19 09:40 Salicylates < 1 mg/dL (2.0-20.0) L 03/13/19 08:34 Urine Opiates Screen Negative (NEGATIVE) 03/13/19 09:40 Urine Methadone Screen Negative (NEGATIVE) 03/13/19 09:40 Acetaminophen < 10.0 ug/ml (10.0-20.0) L 03/14/19 08:15 Ur Barbiturates Screen Negative (NEGATIVE) 03/13/19 09:40 Ur Phencyclidine Scrn Negative (NEGATIVE) 03/13/19 09:40 Ur Amphetamines Screen Negative (NEGATIVE) 03/13/19 09:40 U Benzodiazepines Scrn Positive (NEGATIVE) H 03/13/19 09:40 U Oth Cocaine Metabols Negative (NEGATIVE) 03/13/19 09:40 U Cannabinoids Screen Negative (NEGATIVE) 03/13/19 09:40 Alcohol, Quantitative < 10 mg/dL (0-10) 03/13/19 08:34 - Hospital Course Hospital Course: 64 F with a PMHx of PTSD, Bipolar disorder, anxiety and depression admitted with suicidal ideation with tylenol OD. Poison control called and patient completed NAC therapy. Her repeat tylenol level <10. Patient was seen and examined at bedside with 1:1 sitter for patient safety maintained. Patient is AAOx3 and would like to speak to psychiatry. She is still having difficulty sleeping, and expressed major depression with suicidal ideation. Patient denied fever, chills, shortness of breath chest pains, abdominal pains, nausea, vomiting, diarrhea, constipation, hematura. Her Hyponatremia resolved with fluid restriction. Patient started a 3 day course of antibiotics for UTI. Patient voluntarily agreed to be transferred to the Psych floor and accepted by Psychiatry. Discharge Exam - Head Exam Head Exam: ATRAUMATIC, NORMAL INSPECTION, NORMOCEPHALIC - Eye Exam Eye Exam: EOMI, Normal appearance, PERRL Pupil Exam: NORMAL ACCOMODATION, PERRL - Respiratory Exam Respiratory Exam: Clear to PA & Lateral, NORMAL BREATHING PATTERN, UNREMARKABLE - Cardiovascular Exam Cardiovascular Exam: REGULAR RHYTHM, +S1, +S2 - GI/Abdominal Exam GI & Abdominal Exam: Soft, Unremarkable. absent: Tenderness - Neurological Exam Neurological exam: Alert, CN II-XII Intact, Normal Gait, Oriented x3, Reflexes Normal - Psychiatric Exam Psychiatric exam: Depressed - Skin Skin Exam: Dry, Intact, Normal Color, Warm Discharge Plan - Follow Up Plan Condition: STABLE Disposition: DISCHARGE TO PSYCH HOSPITAL Instructions: Hyponatremia (DC), Hyponatremia (GEN), Depression (DC), Acetaminophen Overdose (DC), Acetaminophen Overdose (GEN), Suicide Prevention for Adults (DC), Suicide Prevention for Adults (GEN) Additional Instructions: Patient medically cleared to be transferred voluntarily to Psych Floor Patient to continue her current medications: Alprazolam 1 mg PO TID PRN, Ciprofloxacin 250mg PO q12 (2 doses left to complete antibiotic course) and Nicotine patch 21mg/24hr TD daily. Referrals: Coy Merino DO [Primary Care Provider] - <Gabriel Espinoza - Last Filed: 03/14/19 16:13> Provider - Provider Date of Admission: 03/13/19 10:09 Attending physician: Gabriel Espinoza MD Primary care physician: Coy Merino DO Consults: 03/14/19 10:12 Physician Consult Routine Comment: Consulting Provider: Surekha Mathur Consulting Physician: Surekha Mathur Reason for Consult: SI Hospital Course - Lab Results Lab Results: Micro Results 03/13/19 09:43 Urine,Clean Catch Urine Culture - Preliminary Gram Negative Glen Most Recent Lab Values WBC 4.8 10^3/uL (4.5-11.0) 03/14/19 05:30 RBC 3.93 10^6/uL (3.5-6.1) 03/14/19 05:30 Hgb 12.0 g/dL (12.0-16.0) 03/14/19 05:30 Hct 36.4 % (36.0-48.0) 03/14/19 05:30 MCV 92.6 fl (80.0-105.0) 03/14/19 05:30 MCH 30.5 pg (25.0-35.0) 03/14/19 05:30 MCHC 33.0 g/dl (31.0-37.0) 03/14/19 05:30 RDW 13.0 % (11.5-14.5) 03/14/19 05:30 Plt Count 298 10^3/uL (120.0-450.0) 03/14/19 05:30 MPV 8.9 fl (7.0-11.0) 03/14/19 05:30 Neut % (Auto) 52.9 % (50.0-68.0) 03/14/19 05:30 Lymph % (Auto) 33.1 % (22.0-35.0) 03/14/19 05:30 Swain % (Auto) 12.4 % (1.0-6.0) H 03/14/19 05:30 Eos % (Auto) 1.0 % (1.5-5.0) L 03/14/19 05:30 Baso % (Auto) 0.6 % (0.0-3.0) 03/14/19 05:30 Lymph # (Auto) 1.6 (1.2-3.4) 03/14/19 05:30 Swain # (Auto) 0.6 (0.1-0.6) 03/14/19 05:30 Eos # (Auto) 0.1 (0.0-0.7) 03/14/19 05:30 Baso # (Auto) 0.03 K/mm3 (0.0-2.0) 03/14/19 05:30 Absolute Neuts (auto) 2.52 (1.4-6.5) 03/14/19 05:30 PT 13.2 SECONDS (9.4-12.5) H 03/14/19 05:30 INR 1.17 03/14/19 05:30 Sodium 136 mmol/L (132-148) 03/14/19 05:30 Potassium 4.2 mmol/L (3.6-5.0) 03/14/19 05:30 Chloride 106 mmol/L (98-107) 03/14/19 05:30 Carbon Dioxide 25 mmol/L (21-33) 03/14/19 05:30 Anion Gap 9 (10-20) L 03/14/19 05:30 BUN 3 mg/dL (7-21) L 03/14/19 05:30 Creatinine 0.4 mg/dl (0.7-1.2) L 03/14/19 05:30 Est GFR ( Amer) > 60 03/14/19 05:30 Est GFR (Non-Af Amer) > 60 03/14/19 05:30 Random Glucose 93 mg/dL (70-110) 03/14/19 05:30 Calcium 8.6 mg/dL (8.4-10.5) 03/14/19 05:30 Magnesium 1.9 mg/dL (1.7-2.2) 03/14/19 05:30 Total Bilirubin 0.5 mg/dL (0.2-1.3) 03/14/19 05:30 Direct Bilirubin 0.3 mg/dL (0.0-0.4) 03/14/19 05:30 AST 20 U/L (14-36) 03/14/19 05:30 ALT 13 U/L (7-56) 03/14/19 05:30 Alkaline Phosphatase 51 U/L (38-126) 03/14/19 05:30 Total Creatine Kinase 35 U/L (35-230) 03/13/19 08:34 Total Protein 6.1 g/dL (5.8-8.3) 03/14/19 05:30 Albumin 3.6 g/dL (3.0-4.8) 03/14/19 05:30 Globulin 2.5 gm/dL 03/14/19 05:30 Albumin/Globulin Ratio 1.4 (1.1-1.8) 03/14/19 05:30 Urine Color Yellow (YELLOW) 03/13/19 09:40 Urine Appearance Sl cloudy (CLEAR) 03/13/19 09:40 Urine pH 6.0 (4.7-8.0) 03/13/19 09:40 Ur Specific [place] 1.020 (1.005-1.035) 03/13/19 09:40 Urine Protein Negative mg/dL (<30 mg/dL) 03/13/19 09:40 Urine Glucose (UA) Negative mg/dL (NEGATIVE) 03/13/19 09:40 Urine Ketones Negative mg/dL (NEGATIVE) 03/13/19 09:40 Urine Blood Small (NEGATIVE) H 03/13/19 09:40 Urine Nitrate Positive (NEGATIVE) H 03/13/19 09:40 Urine Bilirubin Negative (NEGATIVE) 03/13/19 09:40 Urine Urobilinogen 0.2 E.U./dL (<1 E.U./dL) 03/13/19 09:40 Ur Leukocyte Esterase Small Leida/uL (NEGATIVE) H 03/13/19 09:40 Urine RBC 0 - 2 /hpf (0-2) 03/13/19 09:40 Urine WBC 2 - 5 /hpf (0-6) 03/13/19 09:40 Ur Epithelial Cells 0 - 2 /hpf (0-5) 03/13/19 09:40 Urine Bacteria Large /hpf (NONE) 03/13/19 09:40 Salicylates < 1 mg/dL (2.0-20.0) L 03/13/19 08:34 Urine Opiates Screen Negative (NEGATIVE) 03/13/19 09:40 Urine Methadone Screen Negative (NEGATIVE) 03/13/19 09:40 Acetaminophen < 10.0 ug/ml (10.0-20.0) L 03/14/19 08:15 Ur Barbiturates Screen Negative (NEGATIVE) 03/13/19 09:40 Ur Phencyclidine Scrn Negative (NEGATIVE) 03/13/19 09:40 Ur Amphetamines Screen Negative (NEGATIVE) 03/13/19 09:40 U Benzodiazepines Scrn Positive (NEGATIVE) H 03/13/19 09:40 U Oth Cocaine Metabols Negative (NEGATIVE) 03/13/19 09:40 U Cannabinoids Screen Negative (NEGATIVE) 03/13/19 09:40 Alcohol, Quantitative < 10 mg/dL (0-10) 03/13/19 08:34 Attending/Attestation - Attestation I have personally seen and examined this patient.: Yes I have fully participated in the care of the patient.: Yes I have reviewed all pertinent clinical information, including history, physical exam and plan: Yes Notes (Text): 03/14/19 16:10 64 year old female with past medical history of anxiety and depression who presented with complaint of anxiety and depression with SI with overdose of tylenol. Initial tylenol level was 28. UTox positive for benzodiazepines. Poison control was notified and patient started on NAC protocol. LFTs are WNL and tylenol level has trended down. She was on 1:1 observation and xanax prn. Hyponatremia has resolved. Cymbalta was held due to hyponatremia but can be resumed if okay with psychiatry. She is on cipro for E Coli UTI. This morning patient still reported depression and anxiety requested for inpatient psychiatric admission. She was seen by psychiatrist and will be admitted to . Gabriel Espinoza MD Hospitalist.
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
== END 2019-03-14 16:13 | DRG 918 ==
LOC: ED 08:06 → ERH 10:09 → 3RSO 12:17
PROVIDERS: ADMIT Internal Medicine; ATTEND Internal Medicine
DX: T39.1X2A Poisoning by 4-Aminophenol derivatives, intentional self-harm, initial encounter (principal); E87.1 Hypo-osmolality and hyponatremia; N39.0 Urinary tract infection, site not specified; B96.20 Unspecified Escherichia coli [E. coli] as the cause of diseases classified elsewhere; F43.10 Post-traumatic stress disorder, unspecified; F31.9 Bipolar disorder, unspecified; F40.240 Claustrophobia; F17.210 Nicotine dependence, cigarettes, uncomplicated; F41.1 Generalized anxiety disorder; F41.0 Panic disorder [episodic paroxysmal anxiety]